=== PATIENT | male | born 1990 | race Caucasian/White ===

== ENCOUNTER 2018-09-08 21:34 | Emergency (ER) | payer BC ==
[2018-09-08] MEDS ORDERED: Cyclobenzaprine 10 MG Tab PO ONE (21:35)
[2018-09-08] MEDS ORDERED: Acetaminophen/HYDROcodone 325-10 MG Tab PO ONE (21:35)
[2018-09-08 21:51] VITALS: BP 130/94; PULSE 118
[2018-09-08] MEDS ORDERED: Acetaminophen/HYDROcodone 325-10 MG Tab ONE (22:18)
[2018-09-08] MEDS ORDERED: Cyclobenzaprine 10 MG Tab ONE (22:18)
--- NOTE | 2018-09-08 22:21 | EDM.PDOC ---
ED HPI GENERAL MEDICAL PROBLEM - General Chief Complaint: Flank Pain Stated Complaint: SOB Time Seen by Provider: 09/08/18 22:02 Source of Information: Reports: Patient History Limitations: Reports: No Limitations - History of Present Illness INITIAL COMMENTS - FREE TEXT/NARRATIVE: This 28 yo male patient reports to the ED due to right lower lateral rib pain. The patient reports he was doing some work above his head yesterday when he may have injured himself. The patient reports increased pain with movement as well as increased pain and difficulties breathing when lying down. The patient took ibuprofen prior to coming to the ED, but has had little symptom relief. Onset Date: 09/07/18 Duration: Day(s): (3), Constant, Getting Worse Location: Reports: Chest (right lateral chest wall ) Quality: Reports: Ache, Sharp, Stabbing Severity: Moderate Improves with: Reports: None Worsens with: Reports: None Context: Reports: Activity Associated Symptoms: Reports: No Other Symptoms Right Upper Flank Pain Score (Numeric/FACES): 8 - Related Data Allergies Allergy/AdvReac Type Severity Reaction Status Date / Time No Known Allergies Allergy Verified 05/01/16 19:35 Home Meds: Home Meds . [No Known Home Meds] 05/01/16 [History] Past Medical History - Past Health History Medical/Surgical History: Denies Medical/Surgical History Social & Family History - Caffeine Use Caffeine Use: Reports: Soda ED ROS GENERAL - Review of Systems Review Of Systems: ROS reveals no pertinent complaints other than HPI. ED EXAM, GENERAL - Physical Exam Exam: See Below Exam Limited By: No Limitations General Appearance: Alert, WD/WN, Moderate Distress Eye Exam: Bilateral Eye: EOMI, Normal Inspection, PERRL Ears: Normal External Exam, Normal Canal, Hearing Grossly Normal, Normal TMs Nose: Normal Inspection, Normal Mucosa, No Blood Throat/Mouth: Normal Inspection, Normal Lips, Normal Teeth, Normal Gums, Normal Oropharynx, Normal Voice, No Airway Compromise Head: Atraumatic, Normocephalic Neck: Normal Inspection, Supple, Non-Tender, Full Range of Motion Respiratory/Chest: No Respiratory Distress, Lungs Clear, Normal Breath Sounds, No Accessory Muscle Use, Other (The patient has tenderness to palpation of the right lower lateral chest wall) Cardiovascular: Normal Peripheral Pulses, Regular Rate, Rhythm, No Edema, No Gallop, No JVD, No Murmur, No Rub GI/Abdominal: Normal Bowel Sounds, Soft, Non-Tender, No Organomegaly, No Distention, No Abnormal Bruit, No Mass (Male) Exam: Deferred Rectal (Males) Exam: Deferred Back Exam: Normal Inspection, Full Range of Motion, NT Extremities: Normal Inspection, Normal Range of Motion, Non-Tender, Normal Capillary Refill, No Pedal Edema Neurological: Alert, Oriented, CN II-XII Intact, Normal Cognition, Normal Gait, Normal Reflexes, No Motor/Sensory Deficits Psychiatric: Normal Affect, Normal Mood Skin Exam: Warm, Dry, Intact, Normal Color, No Rash Lymphatic: No Adenopathy Course - Vital Signs Last Recorded V/S: Last Vital Signs Temp 36.7 C 09/08/18 21:47 Pulse 118 H 09/08/18 21:47 Resp 22 H 09/08/18 21:47 BP 130/94 H 09/08/18 21:47 Pulse Ox 98 09/08/18 21:47 Departure - Departure Time of Disposition: 22:19 Disposition: Home, Self-Care 01 Condition: Fair Clinical Impression: Chest wall muscle strain Qualifiers: Encounter type: initial encounter Qualified Code(s): S29.011A - Strain of muscle and tendon of front wall of thorax, initial encounter - Discharge Information *PRESCRIPTION DRUG MONITORING PROGRAM REVIEWED*: Not Applicable *COPY OF PRESCRIPTION DRUG MONITORING REPORT IN PATIENT CHANTE: Not Applicable Instructions: Muscle Strain, [id number] Care Plan Goals: The patient was advised of the examination results during the visit. The patient was discharged with Toradol (10 mg) #2 to take 1 by mouth every 6 hours , Flexeril (10 mg) #1 to take at bedtime and [place] (10/325) #2 to take 1 by mouth every 6 hours as needed for breakthrough pain. The patient was also discharged with scripts for Toradol (10 mg) #20 to take 1 by mouth every 6 hours , Flexeril (10 mg) #10 to take 1 by mouth at bedtime as needed and [place] (10/325 ) #6 to take 1 by mouth every 6 hours as needed for breakthrough pain. If the patient has any additional symptoms or concerns, the patient should either return to the emergency department or visit his primary care facility.
== END 2018-09-08 22:26 | disposition home or self-care (01) ==
LOC: DL.ED 21:34
DX: S29.011A Strain of muscle and tendon of front wall of thorax, initial encounter (principal); X58.XXXA Exposure to other specified factors, initial encounter; Y99.0 Civilian activity done for income or pay
CPT/HCPCS: 99282; A9270

== ENCOUNTER 2019-01-28 09:41 | Emergency (ER) | payer BC ==
[2019-01-28 09:51] VITALS: BP 98/54
--- NOTE | 2019-01-28 10:40 | EDM.PDOC ---
ED HPI GENERAL MEDICAL PROBLEM - General Chief Complaint: ENT Problem Stated Complaint: FISHBONE STUCK IN THROAT PER PT Time Seen by Provider: 01/28/19 09:55 Source of Information: Reports: Patient, RN, RN Notes Reviewed History Limitations: Reports: No Limitations - History of Present Illness INITIAL COMMENTS - FREE TEXT/NARRATIVE: Pt to ER with c/o fish bone stuck in his throat. Patient states this happened on when eating fish. He states that it has improved each day, but states he can still feel it, pointing just above the Nikolas's apple. Patient denies SOB. States he made an appointment at the clinic but was called back and told that he would need to be seen in the ER. Onset: Sudden Duration: Constant, Improving Location: Reports: Neck Throat Pain Score (Numeric/FACES): 2 - Related Data Allergies Allergy/AdvReac Type Severity Reaction Status Date / Time No Known Allergies Allergy Verified 01/28/19 09:52 Home Meds: Home Meds . [No Known Home Meds] 05/01/16 [History] Past Medical History - Past Health History Medical/Surgical History: Denies Medical/Surgical History Cardiovascular History: Reports: None Other Respiratory History: chest tube this spring 2018 Gastrointestinal History: Reports: None Genitourinary History: Reports: None Musculoskeletal History: Reports: None Neurological History: Reports: None Psychiatric History: Reports: None Endocrine/Metabolic History: Reports: None Hematologic History: Reports: None Immunologic History: Reports: None Oncologic (Cancer) History: Reports: None Dermatologic History: Reports: None - Infectious Disease History Infectious Disease History: Reports: Chicken Pox - Past Surgical History Head Surgeries/Procedures: Reports: None HEENT Surgical History: Reports: Adenoidectomy Social & Family History - Tobacco Use Smoking Status *Q: Never Smoker Second Hand Smoke Exposure: No - Caffeine Use Caffeine Use: Reports: Coffee, Soda - Recreational Drug Use Recreational Drug Use: No ED ROS ENT - Review of Systems Review Of Systems: ROS reveals no pertinent complaints other than HPI. ED EXAM, ENT - Physical Exam Exam: See Below Exam Limited By: No Limitations General Appearance: Alert, WD/WN, No Apparent Distress Eye Exam: Bilateral Eye: EOMI, Normal Inspection Ears: Normal External Exam, Hearing Grossly Normal Nose: Normal Inspection Mouth/Throat: Normal Inspection, Normal Gums, Normal Lips, Normal Oropharynx, Normal Teeth, Tonsillar Erythema, Tonsillar Swelling (+2), Other (No foreign object noted) Head: Atraumatic, Normocephalic Neck: Normal Inspection, Supple, Non-Tender, Full Range of Motion Respiratory/Chest: No Respiratory Distress, Lungs Clear, Normal Breath Sounds, No Accessory Muscle Use, Chest Non-Tender Cardiovascular: Normal Peripheral Pulses, Regular Rate, Rhythm, No Edema, No Gallop, No JVD, No Murmur, No Rub GI/Abdominal: Normal Bowel Sounds, Soft, Non-Tender (Male) Exam: Deferred Rectal (Males) Exam: Deferred Back: Normal Inspection, Full Range of Motion Extremities: Normal Inspection, Normal Range of Motion, Non-Tender, No Pedal Edema, Normal Capillary Refill Neurological: Alert, Oriented, CN II-XII Intact, Normal Cognition, Normal Gait, Normal Reflexes, No Motor/Sensory Deficits Psychiatric: Normal Affect, Normal Mood Skin: Warm, Dry, Intact, Normal Color, No Rash Lymphatic: No Adenopathy Course - Vital Signs Last Recorded V/S: Last Vital Signs Temp 97.6 F 01/28/19 09:47 Pulse 93 01/28/19 09:47 Resp 16 01/28/19 09:47 BP 98/54 L 01/28/19 09:51 Pulse Ox 100 01/28/19 09:47 - Orders/Labs/Meds Meds: Medications Discontinued Medications Generic Name Dose Route Start Last Admin Trade Name Tom PRN Reason Stop Dose Admin Barium Sulfate 450 ml 01/28/19 11:00 Readi-Cat 2 PO 01/28/19 11:01 ONETIME ONE - Radiology Interpretation Free Text/Narrative:: Chest CT wo contrast: No acute findings See rad report Departure - Departure Time of Disposition: 12:22 Disposition: Home, Self-Care 01 Condition: Fair Clinical Impression: Swallowed foreign body Qualifiers: Encounter type: initial encounter Qualified Code(s): T18.9XXA - Foreign body of alimentary tract, part unspecified, initial encounter - Discharge Information *PRESCRIPTION DRUG MONITORING PROGRAM REVIEWED*: No *COPY OF PRESCRIPTION DRUG MONITORING REPORT IN PATIENT CHANTE: No Instructions: Swallowed Foreign Body, Adult, [id number] Forms: ED Department Discharge Additional Instructions: Drink plenty of water Eat bulky foods, bread, steak If further problems present to the ER in [place] for further evaluation
[2019-01-28] MEDS ORDERED: Barium Sulfate w/v 2.1% Oral Susp 450 ML Bottle PO ONE (11:00)
--- NOTE | 2019-01-28 12:27 | CT ---
Clinical history: 28-year-old male persistent high throat discomfort after possibly "swallowing a fishbone", last (4 days). Scan technique: Volume acquisition of data from the neck and bony thorax obtained after oral ingestion positive contrast and subsequently through the neck (after drinking water) while lying supine on the Siemens multi slice scanner [place], [place]. All data archived in the PACS system for storage, reformatting and study. (Marker on neck, anteriorly) Interpretation: Negative exam. No sign of radiopaque foreign body identified in the throat, hypopharynx, tracheobronchial airway, or esophagus. No paraesophageal soft tissue extravasation or collections of air. Patricia thorax unremarkable. Pleural-parenchymal scar blunting the right costal sulcus, anteriorly. No lung mass, hilar/mediastinal lymphadenopathy or malignant effusion. Normal cardiac silhouette and normal caliber thoracic aorta.. No pericardial effusion. No alveolar edema or pleural effusions. Unenhanced upper abdominal viscera unremarkable.
== END 2019-01-28 12:36 | disposition home or self-care (01) ==
LOC: DL.ED 09:41
DX: T18.9XXA Foreign body of alimentary tract, part unspecified, initial encounter (principal); X58.XXXA Exposure to other specified factors, initial encounter
CPT/HCPCS: 71250; 99283-25

== ENCOUNTER 2023-01-22 16:00 | Emergency (ER) | payer BC ==
[2023-01-22 16:41] VITALS: BP 171/66; PULSE 107
[2023-01-22] MEDS ORDERED: Sodium Chloride 0.9% 10 ML Syringe FLUSH PRN (16:41)
[2023-01-22] MEDS ORDERED: Acetaminophen 325 MG Tab PO ONE (16:43)
[2023-01-22] MEDS ORDERED: Piperacillin/Tazobactam 3.375 GM in Sodium Chloride 0.9% 100 ML IV ONE (16:44)
[2023-01-22 16:55] LABS: BASOPHILS PERCENT AUTO 0.3 % (0.0-1.0); EOSINOPHILS PERCENT AUTO 0.7 % (1.0-3.0); HEMATOCRIT 41.5 % (40.0-54.0); HEMOGLOBIN 13.8 g/dL (14.0-18.0); LYMPHOCYTES PERCENT AUTO 17.7 % (20.5-50.1); MEAN CORPUSCULAR HEMOGLOBIN 28.6 pg (27.0-34.0); MEAN CORPUSCULAR HGB CONC 33.3 g/dL (33.0-35.0); MEAN CORPUSCULAR VOLUME 86.1 fL (80-100); MONOCYTES PERCENT AUTO 13.7 % (2-8); NEUTROPHILS PERCENT AUTO 67.6 % (42.2-75.2); PLATELET COUNT,PLT 222 10^3/uL (150-450); RED BLOOD CELL COUNT 4.82 10^6/uL (4.6-6.2); WHITE BLOOD CELL COUNT,WBC 11.1 10^3/uL (5.0-10.0)
[2023-01-22] MEDS ORDERED: Iopamidol 612 MG/ML 100 ML Bottle IVPUSH ONE (17:09)
[2023-01-22 17:10] LABS: ANION GAP 12.4 mEq/L (7-13); CALCIUM 8.7 mg/dL (8.5-10.1); CREATININE 1.04 mg/dL (0.70-1.30); EST CRCL DRUG DOSING (CG) 109.85 mL/min; POTASSIUM,K 3.4 mmol/L (3.5-5.1)
== END 2023-01-22 17:52 | disposition home or self-care (01) ==
LOC: DL.ED 16:00
DX: L03.213 Periorbital cellulitis (principal)
CPT/HCPCS: 36415; 70487; 80048; 85025; 96374; 99283; 99284; A9270; J2543; J3490; Q9967